=== PATIENT | male | born 1990 | race African-American/Black ===

== ENCOUNTER 2019-12-01 07:22 | Emergency (ER) | payer OTHER ==
[~2019-12-01] VITALS: Ht 182.9 cm; Wt 79.4 kg
[2019-12-01 09:00] VITALS: BP 114/74
== END 2019-12-01 09:11 | disposition home or self-care (01) ==
LOC: ER 07:22
DX: S63.591A Other specified sprain of right wrist, initial encounter (principal); S60.221A Contusion of right hand, initial encounter; W01.0XXA Fall on same level from slipping, tripping and stumbling without subsequent striking against object, initial encounter; Y93.89 Activity, other specified; Y92.89 Other specified places as the place of occurrence of the external cause; Y99.8 Other external cause status